=== PATIENT | male | born 1995 | race Caucasian/White ===

== ENCOUNTER 2017-05-20 02:06 | Emergency (ER) | payer OTHER ==
--- NOTE | 2017-05-20 02:26 | EDM.PDOC ---
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 No direct trauma. Pt was able to walk to the ed but was bending foreword in the ed. 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 No N/V/D dizziness or any other acute medical issues. BP 123/70 temp 36.3 RR 20 Puls ox 99% pulse 70 Onset: Today Onset Date: 05/20/17 Onset Time: 01:00 Duration: Hour(s):, Intermittent Location: Reports: Back Quality: Reports: Dull Severity: Mild Improves with: Reports: Rest Worsens with: Reports: Movement Associated Symptoms: Reports: No Other Symptoms Back Pain Score (Numeric/FACES): 6 - Related Data Allergies Allergy/AdvReac Type Severity Reaction Status Date / Time Penicillins Allergy Swelling Verified 05/20/17 02:17 Home Meds: Home Meds NK [No Known Home Meds] 05/20/17 [History] Past Medical History - Past Health History Medical/Surgical History: Denies Medical/Surgical History Social & Family History - Tobacco Use Smoking Status *Q: Never Smoker - Caffeine Use Caffeine Use: Reports: Coffee - Recreational Drug Use Recreational Drug Use: No ED ROS GENERAL - Review of Systems Review Of Systems: See Below Constitutional: Reports: No Symptoms HEENT: Reports: No Symptoms Respiratory: Reports: No Symptoms Cardiovascular: Reports: No Symptoms Endocrine: Reports: No Symptoms GI/Abdominal: Reports: No Symptoms : Reports: No Symptoms Musculoskeletal: Reports: Back Pain Skin: Reports: No Symptoms Neurological: Reports: No Symptoms Psychiatric: Reports: No Symptoms Hematologic/Lymphatic: Reports: No Symptoms Immunologic: Reports: No Symptoms ED EXAM, UPPER BACK/NECK PAIN - Physical Exam Exam: See Below Exam Limited By: No Limitations General Appearance: Alert, WD/WN, No Apparent Distress, Mild Distress Eye Exam: Bilateral Eye: Normal Inspection Ears Exam: Normal External Exam Nose Exam: Normal Inspection Throat/Mouth Exam: Normal Inspection Head Exam: Atraumatic Neck Exam: Non-Tender Cardiovascular/Respiratory: Regular Rate, Rhythm GI/Abdominal: Normal Bowel Sounds (Male) Exam: Deferred Rectal (Males) Exam: Deferred Back Exam: Normal Inspection, Full Range of Motion, Paraspinal Tenderness Extremities: Normal Inspection, Normal Range of Motion, Non-Tender, No Pedal Edema 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 No direct trauma. Pt was able to walk to the ed but was bending foreword in the ed. 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 No N/V/D dizziness or any other acute medical issues. BP 123/70 temp 36.3 RR 20 Puls ox 99% pulse 70 PE: WNWD WM NAD with tenderness left mid upper, paravertebral, back pain. LABS/Imaging: Not indicated. Impression: Back pain Tx: Toradol, ICE Reexam: Improved Plan: Back to work with light duty till seen by pmd. D/C with instructions Last Recorded V/S: Last Vital Signs Temp 36.3 C 05/20/17 02:20 Pulse 70 05/20/17 02:20 Resp 20 05/20/17 02:20 BP 123/84 05/20/17 02:20 Pulse Ox 99 05/20/17 02:20 - Orders/Labs/Meds Meds: Medications Discontinued Medications Generic Name Dose Route Start Last Admin Trade Name Freq PRN Reason Stop Dose Admin Ketorolac Tromethamine 60 mg 05/20/17 02:27 05/20/17 02:31 Toradol IM 05/20/17 02:28 60 mg ONETIME ONE Administration Departure - Departure Time of Disposition: 02:31 Disposition: Home, Self-Care 01 Condition: Good Clinical Impression: Thoracic back sprain Qualifiers: Encounter type: initial encounter Qualified Code(s): S23.9XXA - Sprain of unspecified parts of thorax, initial encounter - Discharge Information Referrals: PCP,None [Primary Care Provider] - Forms: ED Department Discharge Additional Instructions: Please apply ICE to the affected area, please tke motrin for pain, please f/u with your Doctor, please come back if your symptoms get worse acutely
[2017-05-20] MEDS ORDERED: Ketorolac 60 MG/2 ML SDV IM ONE (02:27)
== END 2017-05-20 02:40 | disposition home or self-care (01) ==
LOC: FB.ED 02:06
DX: S23.9XXA Sprain of unspecified parts of thorax, initial encounter (principal); Z88.0 Allergy status to penicillin; X58.XXXA Exposure to other specified factors, initial encounter; Y93.39 Activity, other involving climbing, rappelling and jumping off; Y99.0 Civilian activity done for income or pay
CPT/HCPCS: 96372; 99000; 99283; J1885

== ENCOUNTER 2018-03-09 23:17 | Emergency (ER) | payer OTHER ==
--- NOTE | 2018-03-09 23:43 | EDM.PDOC ---
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 Pt denied trauma, last BM yesterday PM, stool was soft, brown, no blood. Denies previous surgeries in his abdomen. No N/V no dizziness. drinks 1 gallon of water daily. No other acute medical issues. BP 119/76 RR 16 Pulse ox 99% on RA Temp 36.8 pulse 106 Onset Date: 03/09/18 Onset Time: 10:00 Duration: Hour(s): Location: Reports: Abdomen Quality: Reports: Ache, Burning, Dull, Pressure Severity: Moderate Improves with: Reports: Rest Worsens with: Reports: Movement Context: Reports: Other Associated Symptoms: Reports: No Other Symptoms - Related Data Allergies Allergy/AdvReac Type Severity Reaction Status Date / Time Penicillins Allergy Severe Swelling Verified 03/10/18 00:41 Home Meds: Home Meds NK [No Known Home Meds] 05/20/17 [History] Past Medical History - Past Health History Medical/Surgical History: Denies Medical/Surgical History Social & Family History - Caffeine Use Caffeine Use: Reports: Coffee ED ROS GENERAL - Review of Systems Review Of Systems: See Below Constitutional: Reports: No Symptoms HEENT: Reports: No Symptoms Respiratory: Reports: No Symptoms Cardiovascular: Reports: No Symptoms Endocrine: Reports: No Symptoms GI/Abdominal: Reports: Abdominal Pain : Reports: No Symptoms Musculoskeletal: Reports: No Symptoms Skin: Reports: No Symptoms Neurological: Reports: No Symptoms Psychiatric: Reports: No Symptoms Hematologic/Lymphatic: Reports: No Symptoms Immunologic: Reports: No Symptoms ED EXAM, GI/ABD - Physical Exam Exam: See Below Exam Limited By: No Limitations General Appearance: Alert, WD/WN, Moderate Distress (refused pain meds) Eyes: Bilateral: Normal Appearance Ears: Normal External Exam Nose: Normal Inspection Throat/Mouth: Normal Inspection, Normal Lips, Normal Teeth, Normal Gums, Normal Oropharynx, Normal Voice, No Airway Compromise Head: Atraumatic, Normocephalic Neck: Normal Inspection, Supple, Non-Tender, Full Range of Motion Respiratory/Chest: No Respiratory Distress, Lungs Clear, Normal Breath Sounds, No Accessory Muscle Use, Chest Non-Tender Cardiovascular: Normal Peripheral Pulses, Regular Rate, Rhythm, No Edema, No Gallop, No JVD, No Murmur, No Rub GI/Abdominal Exam: Guarding, Tender (periumbilical), Abnormal Bowel Sounds (Male) Exam: Normal Inspection Rectal (Males) Exam: Deferred Back Exam: Normal Inspection, Full Range of Motion Extremities: Normal Inspection, Normal Range of Motion Neurological: Alert, Oriented, CN II-XII Intact, Normal Cognition, Normal Gait, No Motor/Sensory Deficits Psychiatric: Normal Affect, Normal Mood Skin Exam: Warm, Dry, Intact, Normal Color, No Rash Lymphatic: No Adenopathy Course - Vital Signs Text/Narrative:: 22 y.o.w.m was brought to the ed by a coworker due to abd pain since about 10 pm. Pt denied trauma, last BM yesterday PM, stool was soft, brown, no blood. Denies previous surgeries in his abdomen. No N/V no dizziness. drinks 1 gallon of water daily. No other acute medical issues. BP 119/76 RR 16 Pulse ox 99% on RA Temp 36.8 pulse 106 PE: Obese 22 y.o.w.m with abd. pain Imaging: fecal retention, Hepatic steatosis, small umbilical fat hernia Labs: CBC, BMP nl UA nl Impression: Abd. pain due to fecal retention, Hepatic steatosis, small umbilical fat hernia Tx: Pt refused pain meds, was given MG citrate Reexam: Pt did not have a BM here in the ED Plan: D/C with instructions Last Recorded V/S: Last Vital Signs Temp 36.6 C 03/09/18 23:30 Pulse 76 03/10/18 00:55 Resp 16 03/10/18 00:55 BP 130/73 03/10/18 00:55 Pulse Ox 100 03/10/18 00:55 - Orders/Labs/Meds Orders: Active Orders 24 hr Category Date Time Status Abdomen Pelvis w Cont [CT] Stat Exams 03/09/18 23:39 Taken UA W/MICROSCOPIC [URIN] Stat Lab 03/10/18 00:15 Ordered Labs: Laboratory Tests 03/09/18 03/09/18 03/09/18 Range/Units 23:50 23:50 23:50 WBC 8.6 (4.5-12.0) X10-3/uL RBC 5.18 (4.30-5.75) x10(6)uL Hgb 15.6 H (11.5-15.5) g/dL Hct 45.4 (30.0-51.3) % MCV 87.5 (80-96) fL MCH 30.1 (27.7-33.6) pg MCHC 34.4 (32.2-35.4) g/dL RDW 12.4 (11.5-15.5) % Plt Count 280 (125-369) X10(3)uL MPV 9.5 (7.4-10.4) fL Neut % (Auto) 60.1 (46-82) % Lymph % (Auto) 23.8 (13-37) % [place] % (Auto) 9.6 (4-12) % Eos % (Auto) 5 (1.0-5.0) % Baso % (Auto) 2 (0-2) % Neut # (Auto) 5.2 (1.6-8.3) # Lymph # (Auto) 2.0 (0.6-5.0) # [place] # (Auto) 0.8 (0.0-1.3) # Eos # (Auto) 0.4 (0.0-0.8) # Baso # (Auto) 0.1 (0.0-0.2) # PT 9.9 (8.7-11.1) INR 1.02 (0.89-1.13) Sodium 138 (135-145) mmol/L Potassium 4.0 (3.5-5.3) mmol/L Chloride 104 (100-110) mmol/L Carbon Dioxide 30 (21-32) mmol/L BUN 17 (7-18) mg/dL Creatinine 1.3 (0.70-1.30) mg/dL Est Cr Clr Drug Dosing TNP Estimated GFR (MDRD) > 60 (>60) BUN/Creatinine Ratio 13.1 (9-20) Glucose 94 (80-116) mg/dL Lactic Acid (0.4-2.2) mmol/L Calcium 9.2 (8.6-10.2) mg/dL Urine Color (YELLOW) Urine Appearance (CLEAR) Urine pH (5.0-6.5) Ur Specific [place] (1.010-1.025) Urine Protein (NEGATIVE) mg/dL Urine Glucose (UA) (NEGATIVE) mg/dL Urine Ketones (NEGATIVE) mg/dL Urine Occult Blood (NEGATIVE) Urine Nitrite (NEGATIVE) Urine Bilirubin (NEGATIVE) Urine Urobilinogen (NEGATIVE) mg/dL Ur Leukocyte Esterase (NEGATIVE) Urine RBC (0) Urine WBC (0) Ur Squamous Epith Cells (NS,R,O) Urine Bacteria (NS) 03/09/18 03/10/18 Range/Units 23:50 00:15 WBC (4.5-12.0) X10-3/uL RBC (4.30-5.75) x10(6)uL Hgb (11.5-15.5) g/dL Hct (30.0-51.3) % MCV (80-96) fL MCH (27.7-33.6) pg MCHC (32.2-35.4) g/dL RDW (11.5-15.5) % Plt Count (125-369) X10(3)uL MPV (7.4-10.4) fL Neut % (Auto) (46-82) % Lymph % (Auto) (13-37) % [place] % (Auto) (4-12) % Eos % (Auto) (1.0-5.0) % Baso % (Auto) (0-2) % Neut # (Auto) (1.6-8.3) # Lymph # (Auto) (0.6-5.0) # [place] # (Auto) (0.0-1.3) # Eos # (Auto) (0.0-0.8) # Baso # (Auto) (0.0-0.2) # PT (8.7-11.1) INR (0.89-1.13) Sodium (135-145) mmol/L Potassium (3.5-5.3) mmol/L Chloride (100-110) mmol/L Carbon Dioxide (21-32) mmol/L BUN (7-18) mg/dL Creatinine (0.70-1.30) mg/dL Est Cr Clr Drug Dosing Estimated GFR (MDRD) (>60) BUN/Creatinine Ratio (9-20) Glucose (80-116) mg/dL Lactic Acid 0.5 (0.4-2.2) mmol/L Calcium (8.6-10.2) mg/dL Urine Color Yellow (YELLOW) Urine Appearance Clear (CLEAR) Urine pH 6.0 (5.0-6.5) Ur Specific [place] 1.020 (1.010-1.025) Urine Protein Negative (NEGATIVE) mg/dL Urine Glucose (UA) Normal (NEGATIVE) mg/dL Urine Ketones Negative (NEGATIVE) mg/dL Urine Occult Blood Negative (NEGATIVE) Urine Nitrite Negative (NEGATIVE) Urine Bilirubin Negative (NEGATIVE) Urine Urobilinogen Normal (NEGATIVE) mg/dL Ur Leukocyte Esterase Negative (NEGATIVE) Urine RBC 0-5 (0) Urine WBC 0-5 (0) Ur Squamous Epith Cells Few H (NS,R,O) Urine Bacteria Few H (NS) Meds: Medications Discontinued Medications Generic Name Dose Route Start Last Admin Trade Name Freq PRN Reason Stop Dose Admin Sodium Chloride 1,000 mls @ 125 mls/hr 03/09/18 23:45 03/10/18 00:23 Normal Saline IV 125 mls/hr ASDIRECTED ALICIA Administration Iopamidol 100 ml 03/09/18 23:57 03/10/18 00:08 Isovue-370 (76%) IV 03/09/18 23:58 100 ml . DIRECTED ONE Administration Ketorolac Tromethamine 30 mg 03/10/18 00:22 03/10/18 00:43 Toradol IVPUSH 03/10/18 00:23 Not Given ONETIME ONE Magnesium Citrate Confirm 03/10/18 00:38 03/10/18 03:02 Citrate Of Magnesia Administered 03/10/18 00:39 Not Given Dose 296 ml .ROUTE .STK-MED ONE Magnesium Citrate 296 ml 03/10/18 00:38 03/10/18 00:50 Citrate Of Magnesia PO 03/10/18 00:39 296 ml ONETIME ONE Administration Departure - Departure Time of Disposition: 00:37 Disposition: Home, Self-Care 01 Condition: Good Clinical Impression: Hepatic steatosis Umbilical hernia without mention of obstruction or gangrene Qualifiers: Obstruction and gangrene presence: without obstruction or gangrene Qualified Code(s): K42.9 - Umbilical hernia without obstruction or gangrene Constipation Qualifiers: Constipation type: slow transit constipation Qualified Code(s): K59.01 - Slow transit constipation - Discharge Information Instructions: Umbilical Hernia, Adult, Constipation, Adult, Magnesium Citrate oral solution Referrals: PCP,None [Primary Care Provider] - Forms: ED Department Discharge Additional Instructions: Please take MG citrate as recommended, oatmeal daily, please f/u with your PMD, come back if your symptoms get worse acutely - My Orders Last 24 Hours: My Active Orders 03/09/18 23:39 Abdomen Pelvis w Cont [CT] Stat 03/10/18 00:15 UA W/MICROSCOPIC [URIN] Stat - Assessment/Plan Last 24 Hours: My Active Orders 03/09/18 23:39 Abdomen Pelvis w Cont [CT] Stat 03/10/18 00:15 UA W/MICROSCOPIC [URIN] Stat
[2018-03-09] MEDS ORDERED: Sodium Chloride 0.9% 1,000 ML IV SCH (23:45)
[2018-03-09] MEDS ORDERED: Iopamidol 755 Mg/ML 100 ML Bottle IV ONE (23:57)
[2018-03-10] MEDS: Ketorolac 30 MG/ML SDV IVPUSH ONE ×2 (00:28→00:43)
[2018-03-10] MEDS ORDERED: Magnesium Citrate Solution 296 ML Bottle ONE (00:38)
[2018-03-10] MEDS ORDERED: Magnesium Citrate Solution 296 ML Bottle PO ONE (00:38)
== END 2018-03-10 01:00 | disposition home or self-care (01) ==
LOC: FB.ED 23:17
DX: K42.9 Umbilical hernia without obstruction or gangrene (principal); K59.01 Slow transit constipation; K76.0 Fatty (change of) liver, not elsewhere classified; Z88.0 Allergy status to penicillin
CPT/HCPCS: 36415; 74177; 80048; 81001; 83605; 85025; 85610; 99284; A9270; J7030; Q9967; J1885

== ENCOUNTER 2018-11-09 22:51 | Emergency (ER) | payer OTHER, BC ==
[2018-11-09] MEDS ORDERED: Ibuprofen 600 MG Tab PO ONE (23:04)
--- NOTE | 2018-11-09 23:15 | EDM.PDOC ---
ED HPI GENERAL MEDICAL PROBLEM - General Chief Complaint: Upper Extremity Injury/Pain Stated Complaint: HURT RIGHT HAND Time Seen by Provider: 11/09/18 22:51 Source of Information: Reports: Patient History Limitations: Reports: No Limitations - History of Present Illness INITIAL COMMENTS - FREE TEXT/NARRATIVE: 23 y.o.w.m came to the ED by himself after he smashed his right index finger at work. no swelling, no redness, nl CAP refill. Pt say: " do not move the index finger because i think it will be painful". No N/V/D or any other acute med issues BP 138/85 RR 18 Pulse ox 98% on RA Temp 36.6 Pulse 107 Onset Date: 11/09/18 Onset Time: 19:00 Duration: Hour(s): Location: Reports: Upper Extremity, Right (2nd finger) Quality: Reports: Ache, Dull Severity: Mild Improves with: Reports: Rest Worsens with: Reports: Movement Context: Reports: Trauma Associated Symptoms: Reports: No Other Symptoms right side index finger Pain Score (Numeric/FACES): 6 - Related Data Allergies Allergy/AdvReac Type Severity Reaction Status Date / Time Penicillins Allergy Severe Swelling Verified 11/09/18 22:59 Home Meds: Home Meds Multivitamin [Multi-Vitamin Daily] 1 each PO DAILY 11/09/18 [History] Past Medical History - Past Health History Medical/Surgical History: Denies Medical/Surgical History - Infectious Disease History Infectious Disease History: Reports: Mononucleosis - Past Surgical History Musculoskeletal Surgical History: Reports: Other (See Below) Other Musculoskeletal Surgeries/Procedures:: History of partial amputation of right great toe, surgically repaired. Dermatological Surgical History: Reports: Other (See Below) Social & Family History - Caffeine Use Caffeine Use: Reports: Coffee Review of Systems - Review of Systems Review Of Systems: See Below Constitutional: Reports: No Symptoms Eyes: Reports: No Symptoms Ears: Reports: No Symptoms Nose: Reports: No Symptoms Mouth/Throat: Reports: No Symptoms Respiratory: Reports: No Symptoms Cardiovascular: Reports: No Symptoms GI/Abdominal: Reports: No Symptoms Genitourinary: Reports: No Symptoms Musculoskeletal: Reports: Other (right index finger) Skin: Reports: No Symptoms Neurological: Reports: No Symptoms Psychiatric: Reports: No Symptoms ED EXAM, GENERAL - Physical Exam Exam: See Below Exam Limited By: No Limitations General Appearance: Alert, WD/WN, Mild Distress Eye Exam: Bilateral Eye: Normal Inspection Ears: Normal External Exam Ear Exam: Bilateral Ear: Auricle Normal Nose: Normal Inspection, Normal Mucosa Throat/Mouth: Normal Inspection, Normal Lips, Normal Teeth Head: Atraumatic, Normocephalic Neck: Normal Inspection, Supple, Non-Tender, Full Range of Motion Respiratory/Chest: No Respiratory Distress, Lungs Clear, Normal Breath Sounds, Chest Non-Tender Cardiovascular: Normal Peripheral Pulses, Regular Rate, Rhythm, No Edema, No Gallop, No JVD, No Murmur, No Rub Peripheral Pulses: 2+: Brachial (R) GI/Abdominal: Normal Bowel Sounds, Soft, Non-Tender (Male) Exam: Deferred Rectal (Males) Exam: Deferred Back Exam: Normal Inspection, Full Range of Motion Extremities: Normal Inspection, Normal Range of Motion Neurological: Alert, Oriented, CN II-XII Intact Psychiatric: Normal Affect, Normal Mood Skin Exam: Warm, Dry, Intact, Normal Color, No Rash Lymphatic: No Adenopathy Course - Vital Signs Text/Narrative:: 23 y.o.w.m came to the ED by himself after he smashed his right index finger at work. no swelling, no redness, nl CAP refill. Pt say: " do not move the index finger because i think it will be painful". No N/V/D or any other acute med issues BP 138/85 RR 18 Pulse ox 98% on RA Temp 36.6 Pulse 107 PE: WNWD W M C/O right index finger "discomfort" Imaging: Right index finger: NAD Impression: Right 2nd finger sprain Tx: finger splint applied by nurse, ICE, Motrin Reexam: Improved Plan: D/C with instructions Last Recorded V/S: Last Vital Signs Temp 37.1 C 11/09/18 23:40 Pulse 80 11/09/18 23:40 Resp 17 11/09/18 23:40 BP 123/86 11/09/18 23:40 Pulse Ox 95 11/09/18 23:40 - Orders/Labs/Meds Orders: Active Orders 24 hr Category Date Time Status Fingers Second Digit Rt F6 [CR] Stat Exams 11/09/18 23:04 Taken Ice Therapy [OM.PC] Routine Oth 11/09/18 23:04 Ordered Meds: Medications Discontinued Medications Generic Name Dose Route Start Last Admin Trade Name Michelle PRN Reason Stop Dose Admin Ibuprofen 600 mg 11/09/18 23:04 11/09/18 23:09 Motrin PO 11/09/18 23:05 600 mg ONETIME ONE Administration Departure - Departure Time of Disposition: 23:41 Disposition: Home, Self-Care 01 Condition: Good Clinical Impression: Sprain of finger of right hand Qualifiers: Encounter type: initial encounter Finger: index finger Sprain of finger site: interphalangeal joint Qualified Code(s): S63.630A - Sprain of interphalangeal joint of right index finger, initial encounter - Discharge Information Instructions: Finger Sprain, Adult Referrals: PCP,None [Primary Care Provider] - Forms: ED Department Discharge, ED Return to Work/School Form Additional Instructions: Motrin for pain, ice. F/U with your PMD, come back if acutely worse. - My Orders Last 24 Hours: My Active Orders 11/09/18 23:04 Fingers Second Digit Rt F6 [CR] Stat Ice Therapy [OM.PC] Routine - Assessment/Plan Last 24 Hours: My Active Orders 11/09/18 23:04 Fingers Second Digit Rt F6 [CR] Stat Ice Therapy [OM.PC] Routine
--- NOTE | 2018-11-12 11:43 | CR ---
INDICATION: Smashed distal half of the index finger at work. RIGHT SECOND DIGIT: Three views of the right index finger were obtained and revealed no evidence of a fracture, dislocation, or other significant bone or joint abnormality. STACI
== END 2018-11-09 23:45 | disposition home or self-care (01) ==
LOC: FB.ED 22:51
DX: S63.630A Sprain of interphalangeal joint of right index finger, initial encounter (principal); Z79.899 Other long term (current) drug therapy; Z88.0 Allergy status to penicillin; W23.0XXA Caught, crushed, jammed, or pinched between moving objects, initial encounter; Y99.0 Civilian activity done for income or pay
CPT/HCPCS: 73140; 99283; A9270

== ENCOUNTER 2020-03-27 20:22 | Emergency (ER) | payer SELFPAY ==
[2020-03-27] MEDS ORDERED: Cyclobenzaprine 10 MG Tab PO ONE (20:44)
[2020-03-27] MEDS ORDERED: Ketorolac 30 MG/ML SDV IVPUSH STA (20:44)
[2020-03-27] MEDS ORDERED: Ondansetron 4 MG/2 ML SDV IVPUSH ONE (20:47)
[2020-03-27] MEDS ORDERED: Iopamidol 755 Mg/ML 100 ML Bottle IV ONE (21:12)
--- NOTE | 2020-03-28 00:10 | EDM.PDOC ---
ED HPI GENERAL MEDICAL PROBLEM - General Chief Complaint: Back Pain or Injury Stated Complaint: BACK PAIN Time Seen by Provider: 03/27/20 20:25 Source of Information: Reports: Patient History Limitations: Reports: No Limitations - History of Present Illness INITIAL COMMENTS - FREE TEXT/NARRATIVE: Patient presented to the ED because of low back pain,05/02 with associated N/V x1. There is no fever or chills. right lower back Pain Score (Numeric/FACES): 10 - Related Data Allergies Allergy/AdvReac Type Severity Reaction Status Date / Time Penicillins Allergy Severe Swelling Verified 11/09/18 22:59 amoxicillin Allergy Swelling Verified 03/27/20 22:47 Home Meds: Home Meds Multivitamin [Multi-Vitamin Daily] 1 each PO DAILY 11/09/18 [History] Acetaminophen/oxyCODONE [Percocet 325-5 MG] 1 each PO Q4HR PRN #10 tab 03/28/20 [Rx] Tamsulosin HCl [Flomax] 0.4 mg PO DAILY #10 cap.er.24h 03/28/20 [Rx] Past Medical History - Past Health History Medical/Surgical History: Denies Medical/Surgical History - Infectious Disease History Infectious Disease History: Reports: Mononucleosis - Past Surgical History Musculoskeletal Surgical History: Reports: Other (See Below) Other Musculoskeletal Surgeries/Procedures:: History of partial amputation of right great toe, surgically repaired. Dermatological Surgical History: Reports: Other (See Below) Social & Family History - Family History Family Medical History: Noncontributory - Tobacco Use Smoking Status *Q: Never Smoker - Caffeine Use Caffeine Use: Reports: Coffee ED ROS GENERAL - Review of Systems Review Of Systems: See Below Constitutional: Reports: No Symptoms HEENT: Reports: No Symptoms Respiratory: Reports: No Symptoms Cardiovascular: Reports: No Symptoms Endocrine: Reports: No Symptoms GI/Abdominal: Reports: Abdominal Pain : Reports: No Symptoms Musculoskeletal: Reports: No Symptoms Skin: Reports: No Symptoms ED EXAM, GI/ABD - Physical Exam Exam: See Below Exam Limited By: No Limitations General Appearance: Alert, No Apparent Distress Ears: Normal External Exam, Normal Canal, Hearing Grossly Normal Nose: Normal Inspection, Normal Mucosa Throat/Mouth: Normal Inspection, Normal Lips Head: Atraumatic, Normocephalic Neck: Normal Inspection, Supple Respiratory/Chest: No Respiratory Distress, Lungs Clear, Normal Breath Sounds Cardiovascular: Normal Peripheral Pulses, Regular Rate, Rhythm, No Edema, No Gallop GI/Abdominal Exam: Normal Bowel Sounds, Soft, Other (CVAT-RT) Course - Vital Signs Text/Narrative:: Labs, CT result was disussed with patient NS 1 L bolus Toradol 4 mg IV Valium 10 mg IVx1 Last Recorded V/S: Last Vital Signs Temp 36.9 C 03/27/20 20:22 Pulse 90 03/27/20 20:22 Resp 17 03/27/20 20:22 BP 162/116 H 03/27/20 20:22 Pulse Ox 99 03/27/20 20:22 - Orders/Labs/Meds Orders: Active Orders 24 hr Category Date Time Status Abdomen Pelvis wo Cont [CT] Stat Exams 03/27/20 20:47 Taken Chest Abdomen Pelvis w Cont [CT] Stat Exams 03/27/20 21:53 Taken Labs: Laboratory Tests 03/27/20 03/27/20 03/27/20 Range/Units 21:00 21:05 21:05 WBC 11.4 (4.5-12.0) X10-3/uL RBC 5.10 (4.30-5.75) x10(6)uL Hgb 15.4 (13.5-17.8) g/dL Hct 44.0 (30.0-51.3) % MCV 86.3 (80-96) fL MCH 30.2 (27.7-33.6) pg MCHC 35.0 (32.2-35.4) g/dL RDW 11.9 (11.5-15.5) % Plt Count 296 (125-369) X10(3)uL MPV 9.3 (7.4-10.4) fL Neut % (Auto) 78.3 (46-82) % Lymph % (Auto) 12.0 L (13-37) % Graham % (Auto) 8.1 (4-12) % Eos % (Auto) 1 (1.0-5.0) % Baso % (Auto) 1 (0-2) % Neut # (Auto) 8.9 H (1.6-8.3) # Lymph # (Auto) 1.4 (0.6-5.0) # Graham # (Auto) 0.9 (0.0-1.3) # Eos # (Auto) 0.1 (0.0-0.8) # Baso # (Auto) 0.1 (0.0-0.2) # Sodium 139 (135-145) mmol/L Potassium 3.9 (3.5-5.3) mmol/L Chloride 102 (100-110) mmol/L Carbon Dioxide 26 (21-32) mmol/L BUN 20 H (7-18) mg/dL Creatinine 1.7 H (0.70-1.30) mg/dL Est Cr Clr Drug Dosing TNP Estimated GFR (MDRD) 49 L (>60) BUN/Creatinine Ratio 11.8 (9-20) Glucose 119 H (80-116) mg/dL Calcium 8.8 (8.6-10.2) mg/dL Urine Color Yellow (YELLOW) Urine Appearance Clear (CLEAR) Urine pH 8.0 H (5.0-6.5) Ur Specific [place] 1.010 (1.010-1.025) Urine Protein Negative (NEGATIVE) mg/dL Urine Glucose (UA) Normal (NORMAL) mg/dL Urine Ketones 15 H (NEGATIVE) mg/dL Urine Occult Blood Moderate H (NEGATIVE) Urine Nitrite Negative (NEGATIVE) Urine Bilirubin Negative (NEGATIVE) Urine Urobilinogen 1 H (NEGATIVE) mg/dL Ur Leukocyte Esterase Negative (NEGATIVE) Urine RBC 0-5 (0-5) Urine WBC 0-5 (0-5) Ur Squamous Epith Cells Occasional (NS,R,O) Urine Bacteria Rare H (NS) Meds: Medications Discontinued Medications Generic Name Dose Route Start Last Admin Trade Name Freq PRN Reason Stop Dose Admin Cyclobenzaprine HCl 10 mg 03/27/20 20:44 03/27/20 20:50 Flexeril PO 03/27/20 20:45 10 mg ONETIME ONE Administration Diazepam 10 mg 03/27/20 21:01 03/27/20 21:14 Valium IVPUSH 03/27/20 21:02 10 mg ONETIME ONE Administration Iopamidol 100 ml 03/27/20 21:12 03/27/20 21:47 Isovue-370 (76%) IV 03/27/20 21:13 100 ml . DIRECTED ONE Administration Ketorolac Tromethamine 30 mg 03/27/20 20:44 03/27/20 20:52 Toradol IVPUSH 03/27/20 20:45 30 mg NOW STA Administration Ondansetron HCl 4 mg 03/27/20 20:47 03/27/20 20:52 Zofran IVPUSH 03/27/20 20:48 4 mg ONETIME ONE Administration Departure - Departure Time of Disposition: 00:10 Disposition: Home, Self-Care 01 Condition: Good Clinical Impression: Nephrolithiasis - Discharge Information Prescriptions: Tamsulosin HCl [Flomax] 0.4 mg PO DAILY #10 cap.er.24h Acetaminophen/oxyCODONE [Percocet 325-5 MG] 1 each PO Q4HR PRN #10 tab PRN Reason: Pain Referrals: PCP,Unknown [Primary Care Provider] - Additional Instructions: Please read discharge instructions on kidney stone Increase oral fluids Percocet 5/325, 1-2 tablets every 4-6 hours as needed for pain Follo wup as needed Sepsis Event Note (ED) - Evaluation Sepsis Screening Result: No Definite Risk - Focused Exam Vital Signs: Vital Signs Temp Pulse Resp BP Pulse Ox 03/27/20 20:22 36.9 C 90 17 162/116 H 99 - My Orders Last 24 Hours: My Active Orders 03/27/20 20:47 Abdomen Pelvis wo Cont [CT] Stat 03/27/20 21:53 Chest Abdomen Pelvis w Cont [CT] Stat - Assessment/Plan Last 24 Hours: My Active Orders 03/27/20 20:47 Abdomen Pelvis wo Cont [CT] Stat 03/27/20 21:53 Chest Abdomen Pelvis w Cont [CT] Stat
== END 2020-03-28 00:55 | disposition home or self-care (01) ==
LOC: FB.ED 20:22
DX: N13.2 Hydronephrosis with renal and ureteral calculous obstruction (principal); Z88.0 Allergy status to penicillin; Z88.1 Allergy status to other antibiotic agents
CPT/HCPCS: 36415; 71260; 74176; 74177; 80048; 81001; 85025; 96374; 96375; 99000; 99285-25; A9270-GY; J1885; J2405; J3360; Q9967